=== PATIENT | male | born 2000 | race Caucasian/White ===

== ENCOUNTER 2023-07-22 00:45 | Emergency (ER) | payer OTHER, MEDICAID, SELFPAY ==
[2023-07-22] VITALS (11 sets, daily range): BP systolic 104–112; BP diastolic 41–61; PULSE 57–168; RESP 14–20; TEMP 36.8–36.9; O2SAT 94–98; BMI 21.7
--- NOTE | 2023-07-22 00:59 | ED_ITS ---
HPI - Alcohol General Chief Complaint: General Medical Stated Complaint: Etoh Time Seen by Provider: 07/22/23 00:57 Source: patient Mode of arrival: ambulatory Limitations: no limitations History of Present Illness HPI narrative: Patient called EMS for help in the [place] they found him he ran from the [employer] autoimmune report that he took some unknown Atarax possibly laced also found empty alcohol bottles patient tachycardic on arrival with heart rate of 143 patient very agitated not cooperative refusing the labs and urine sample is not telling details no signs of trauma Related Data Allergies Allergy/AdvReac Type Severity Reaction Status Date / Time gluten Allergy Unknown Verified 07/22/23 05:44 Review of Systems 2 Review of Systems: Yes all other systems are reviewed and are negative [facility] Social History Social History Advance Directives: No Advance Directives Information Provided: No Physical Exam ED Vital Signs: Vital Signs - 24 hr 07/22/23 01:14 07/22/23 01:15 07/22/23 01:30 Temperature Pulse Rate 143 H 111 H Respiratory Rate 20 17 Blood Pressure Pulse Oximetry Oxygen Delivery Method Room Air Oxygen Flow Rate 97 95 07/22/23 01:46 07/22/23 02:00 07/22/23 02:15 Temperature Pulse Rate 98 76 72 Respiratory Rate 16 17 17 Blood Pressure Pulse Oximetry 95 94 94 Oxygen Delivery Method Room Air Room Air Room Air Oxygen Flow Rate 07/22/23 02:30 07/22/23 02:45 07/22/23 06:00 Temperature 98.2 F Pulse Rate 75 77 57 Respiratory Rate 16 15 14 Blood Pressure 109/42 L 110/41 L 104/59 L Pulse Oximetry 95 96 98 Oxygen Delivery Method Room Air Room Air Room Air Oxygen Flow Rate BMI result Body Mass Index 21.7 Appearance: Alert. Oriented X3. No acute distress. Eyes: PERRLA, No Nystagmus ENT: Pharynx normal. Oral Mucosa dry Neck: Normal inspection. Neck supple. CVS: Normal heart rate and rhythm. Pulses normal. Respiratory: No respiratory distress. Equal air entry bilateral, no wheezing/rales/rhonchi Abdomen: Soft and nontender. Bowel sounds are present, no mass palpable, no CVA tenderness Skin: Skin warm and dry. Normal skin color. Normal skin turgor. Extremities: No lower extremity edema. No calf tenderness Neuro: Oriented X 3. No motor deficit. No sensory deficit.No cerebellar signs , cranial nerves II-XII intact Medical Decision Making Medical Decision Making [facility] Narrative: Patient is getting intermittent agitation fighting and kicking with the staff at 2 restrained him to get him medications was given Haldol 5 mg Benadryl 50 and Versed 2 mg make him calm down. 6 am : Patient is calm and cooperative will get care team involved for her normal psychotic behavior urine drug screen positive for marijuana and benzos Lab Data [facility] Lab Attestation statement: I reviewed the patient's lab results. 07/22/23 05:30 07/22/23 05:30 Labs: Lab Results 07/22/23 07/22/23 07/22/23 Range/Units 03:37 05:30 05:31 WBC 8.4 (4.8-10.8) X10*3/uL RBC 5.09 (4.60-5.80) X10*6/uL Hgb 15.0 (14.0-18.0) g/dl Hct 42.2 (42.0-52.0) % MCV 82.9 (80.0-98.0) fL MCH 29.5 (27.0-33.0) pg MCHC 35.5 (31.0-36.0) g/dl RDW 11.9 (11.0-16.0) % Plt Count 260 (160-400) X10*3/uL MPV 11.0 (9.4-12.4) fL Immature Gran % (Auto) 0.2 (0.0-0.4) % Neut % (Auto) 72.3 (45-73) % Lymph % (Auto) 17.3 L (20-40) % [place] % (Auto) 9.9 (2-11) % Eos % (Auto) 0.1 (0-4) % Baso % (Auto) 0.2 (0-2) % Lymph # (Auto) 1.5 (1.2-4.9) X10*3/uL [place] # (Auto) 0.8 (0.1-1.2) X10*3/uL Eos # (Auto) 0.0 (0.0-0.4) X10*3/uL Baso # (Auto) 0.0 (0.0-0.2) X10*3/uL Abs Immat Gran (auto) 0.02 (0.00-0.03) X10*3/uL Absolute Neuts (auto) 6.1 (2.0-8.3) x10*3/uL Absolute Nucleated RBC 0.000 (0.0-0.012) X10*3/uL Nucleated RBC % (auto) 0.0 (0.0-0.2) /100WBC Sodium 141 (135-145) mmol/L Potassium 4.0 (3.3-5.1) mmol/L Chloride 107 (96-108) mmol/L Carbon Dioxide 21 L (22-29) mmol/L Anion Gap 17 (12-20) BUN 17 H (9-16) mg/dL Creatinine 1.11 (0.5-1.4) mg/dL Estim Creat Clear Calc 87.4 Estimated GFR > 60 Random Glucose 102 (60-115) mg/dL Calcium 9.8 (8.4-10.2) mg/dL Total Bilirubin 0.5 (0.0-1.0) mg/dL AST 29 (5-37) U/L ALT 19 (0-40) U/L Alkaline Phosphatase 69 (39-117) U/L Total Protein 7.4 (6.5-8.0) g/dL Albumin 4.6 (3.5-5.0) g/dL Urine Opiates Screen Not Detected (Not Detect) Urine Fentanyl Screen Not Detected (Not Detect) Ur Barbiturates Screen Not Detected (Not Detect) Ur Phencyclidine Scrn Not Detected (Not Detect) Ur Amphetamines Screen Not Detected (Not Detect) U Benzodiazepines Scrn POSITIVE H (Not Detect) Urine Cocaine Screen Not Detected (Not Detect) U Marijuana (THC) Screen POSITIVE H (Not Detect) Ethyl Alcohol < 10 mg/dL COVID-19 (DAVID) Negative (Negative) COVID-19 Clin Com See Note Medications Administered Discontinued Medications Generic Name Dose Route Start Last Admin Trade Name Freq PRN Reason Stop Dose Admin Diphenhydramine HCl 50 mg 07/22/23 01:08 07/22/23 01:15 Diphenhydramine Hcl 50 Mg/Ml Vial IM 07/22/23 01:09 50 mg ONCE ONE Administration Haloperidol Lactate 5 mg 07/22/23 01:08 07/22/23 01:15 Haloperidol Lactate 5 Mg/Ml Vial IM 07/22/23 01:09 5 mg ONCE ONE Administration Sodium Chloride 1,000 mls @ 999 mls/hr 07/22/23 01:07 07/22/23 01:24 Ns IV 07/22/23 02:07 Not Given .Q1H1M ONE Midazolam HCl 2 mg 07/22/23 01:08 07/22/23 01:15 Midazolam Hcl/Pf 2 Mg/2 Ml Vial IM 07/22/23 01:09 2 mg ONCE ONE Administration Discharge Plan Discharge Clinical Impression: Psychotic disorder Patient Disposition: Still a Patient
[2023-07-22] MEDS: Haloperidol Lactate 5 MG/ML VIAL IM (01:15)
[2023-07-22] MEDS: Midazolam HCl/PF 2 MG/2 ML VIAL IM (01:15)
[2023-07-22] MEDS: diphenhydrAMINE HCL 50 MG/ML VIAL IM (01:15)
--- NOTE | 2023-07-22 01:16 | PC.NURSE ---
pt unclear of what is going on seems confused and attmempted to run and fight off security. Chemically restrained at time of aggression for pt and staff safety/ Pt refusing vitals
--- NOTE | 2023-07-22 02:55 | PC.NURSE ---
pt refuses labs
--- NOTE | 2023-07-22 03:47 | PC.NURSE ---
provider made aware that pt refusing all blood work
[2023-07-22 03:58] LABS: COVID-19 Test Negative (Negative); IDNOW Serial# 152EDE1D
--- NOTE | 2023-07-22 05:07 | PC.NURSE ---
pt still resting calmly howeverstill refusing most vitals and labwork
[2023-07-22 05:40] LABS: MANUAL DIFF FLAG NO
[2023-07-22 05:41] LABS: Basophils Percent Auto 0.2 % (0-2); Eosinophils Percent Auto 0.1 % (0-4); Hematocrit 42.2 % (42.0-52.0); Imm Gran Abs Auto 0.02 X10*3/uL (0.00-0.03); Imm Gran Pct Auto 0.2 % (0.0-0.4); Lymphocytes Absolute Auto 1.5 X10*3/uL (1.2-4.9); Lymphocytes Percent Auto 17.3 % (20-40); Mean Corpuscular HGB Conc 35.5 g/dl (31.0-36.0); Mean Corpuscular Hemoglobin 29.5 pg (27.0-33.0); Mean Corpuscular Volume 82.9 fL (80.0-98.0); Monocytes Absolute Auto 0.8 X10*3/uL (0.1-1.2); Monocytes Percent Auto 9.9 % (2-11); Neutrophils Absolute Auto 6.1 x10*3/uL (2.0-8.3); Neutrophils Percent Auto 72.3 % (45-73); Platelet Count 260 X10*3/uL (160-400); Red Blood Count 5.09 X10*6/uL (4.60-5.80); Red Cell Distribution Width 11.9 % (11.0-16.0); White Blood Count 8.4 X10*3/uL (4.8-10.8)
[2023-07-22 05:45] LABS: Amphetamine Screen Urine Not Detected (Not Detect); Barbiturates, Urine Not Detected (Not Detect); Benzodiazepines Screen Urine POSITIVE (Not Detect); Cannabinoid Screen Urine POSITIVE (Not Detect); Cocaine Screen Urine Not Detected (Not Detect); Fentanyl, urine Not Detected (Not Detect); Opiate Screen Urine Not Detected (Not Detect); Phencyclidine Screen Urine Not Detected (Not Detect)
[2023-07-22 06:00] LABS: Ethanol < 10 mg/dL
[2023-07-22 06:01] LABS: Alanine Aminotransferase 19 U/L (0-40); Albumin Level 4.6 g/dL (3.5-5.0); Alkaline Phosphatase 69 U/L (39-117); Anion Gap 17 (12-20); Aspartate Amino Transferase 29 U/L (5-37); Bilirubin Total 0.5 mg/dL (0.0-1.0); Blood Urea Nitrogen 17 mg/dL (9-16); Calcium 9.8 mg/dL (8.4-10.2); Carbon Dioxide 21 mmol/L (22-29); Chloride 107 mmol/L (96-108); Creatinine Clr Calc Pharmacy 87.4; Estimated Glomerular Filt Rate > 60; Glucose Random 102 mg/dL (60-115); Sodium 141 mmol/L (135-145); Total Protein 7.4 g/dL (6.5-8.0)
== END 2023-07-22 14:45 | disposition home or self-care (01) ==
PROVIDERS: Internal Medicine; Emergency Provider Emergency Medicine Emergency Medical Services
DX: F23 Brief psychotic disorder (principal); Z79.899 Other long term (current) drug therapy; Z11.52 Encounter for screening for COVID-19
CPT/HCPCS: 36415; 80053; 80307; 85025; 87635; 96372; 99284; J1200; J1630; J2250